=== PATIENT | male | born 1950 | race Caucasian/White ===

== ENCOUNTER 2024-11-12 18:58 | Inpatient (IN) | payer MEDICARE, MEDICAID ==
[~2024-11-12] VITALS: Ht 170.2 cm; Wt 99.0 kg
[2024-11-12] MEDS ORDERED: diltiazem-D5W 125mg/125ml 125 ML IV SCH (19:00)
[2024-11-12] MEDS ORDERED: APIX5TAB5 PO (19:13)
[2024-11-12 19:31] LABS: BASOPHILS # (AUTO) 0.1 X10'3 (0-0.2); BASOPHILS % (AUTO) 0.5 % (0-1); EOSINOPHILS % (AUTO) 0.3 % (0-6); HEMATOCRIT 45.3 % (42.0-52.0); HEMOGLOBIN 15.1 g/dl (14.0-17.9); LYMPHOCYTES # (AUTO) 2.4 X10'3 (1.1-4.8); LYMPHOCYTES % (AUTO) 18.4 % (21-51); MEAN CORPUSCULAR HEMOGLOBIN 29.2 PG (27.0-31.0); MEAN CORPUSCULAR HGB CONC 33.4 g/dL (33.0-36.5); MEAN CORPUSCULAR VOLUME 87.4 FL (78-98); MEAN PLATELET VOLUME 6.9 FL (7.4-10.4); MONOCYTES # (AUTO) 0.8 X10'3 (0-0.9); NEUTROPHILS # (AUTO) 9.7 X10'3 (1.8-7.7); NEUTROPHILS % (AUTO) 74.8 % (42-75); PLATELET COUNT 335 X10'3 (140-440); RED BLOOD COUNT 5.18 X10'6 (4.70-6.10); RED CELL DISTRIBUTION WIDTH 14.4 % (11.5-14.5)
--- NOTE | 2024-11-12 19:35 | Physician Documentation ---
History of Present Illness ~ Chief Complaint: Irregular Heartbeat Stated Complaint: HIGH HEART RATE Time Seen by MD: 19:13 HPI This is a very pleasant 74-year-old gentleman with a recent diagnosis of AFib with a RVR, started on Eliquis by his PCP yesterday, comes in as a transfer from [facility] for symptomatic slow response AFib. I reviewed records from the outside facility. Metabolic panel is unremarkable with BUN of 16.5, creatinine 0.95, normal electrolytes, normal calcium, magnesium of 1.9. Liver function is normal. BNP is mildly elevated 236. Troponin is negative at 0.04. CBC normal with a WBC of 9.8, hemoglobin 15, platelets of 308. 79% neutrophils. EKG from the outside facility reviewed as well. They shows atrial flutter, rate of 95, variable conduction, narrow QRS, no QT prolongation, normal axis, no STEMI. It appears that the patient had gone to the outside facility for worsening chest pain, shortness a breath, sensation of palpitations. She was lightheaded on an experienced near-syncope. He is currently symptom free. He specifically denies any chest pain, difficulty breathing, sensation of palpitation for lightheadedness, diaphoresis. He was noted to be in AFib with a RVR there. Non the concerned with the outside facility was that despite of AFib with a RVR the perfusing rate was bradycardic and they felt with the patient's pt need of drive pacemaker placement. Medication Reconciliation Allergies: Coded Allergies: NSAIDS (Non-Steroidal Anti-Inflamma (Verified Adverse Reaction, Unknown, 11/12/24) Scheduled Apixaban (Eliquis), 1 TAB PO BID, (Reported) Review of Systems ROS 10 point review of systems was performed and unless noted above in HPI is negative for acute process/complaint. Physical Exam Vital Signs: Temperature: 97.6, Source: Temporal, Heart Rate: 69, Respiratory Rate: 12, BP: 142/82, Pulse Oximetry: 98, Weight: 103.000 Physical Exam GENERAL: Awake, alert, oriented, GCS 15, no apparent distress, non-toxic appearing, answers questions, follows commands appropriately. Examined in bed 2. HEENT: Atraumatic, normocephalic, pupils equal, extraocular muscles intact, sclerae anicteric, mucus membranes moist, oropharynx is clear, no stridor. NECK: supple, full active range of motion, trachea midline, no thyromegaly, no lymphadenopathy, no JVD. CARDIOVASCULAR: regular rate/rhythm, no murmurs/gallops/rubs, Pulses are 2+ in all extremities and symmetric. Capillary refill less than 2 seconds. PULMONARY: Nonlabored, good air movement ,no respiratory distress, speaking in full sentences, clear to auscultation bilaterally, no wheezing, no ronchi, no rales, no accessory muscle use. GASTROINTESTINAL: Soft, non-tender, non-distended, normal active bowel sounds, no organomegaly, no pulsatile masses, no CVA tenderness. NEUROLOGIC: Lucid with normal mental status. Normal facial symmetry. Moves all extremities symmetrically and with purpose. No truncal ataxia. Speech is fluid without evidence of dysarthria or aphasia, no focal deficits appreciated. MUSCULOSKELETAL: There is full range of motion of all extremities. There is no joint pain or joint swelling or joint erythema. There is no muscle pain or tenderness or swelling. EXTREMITIES: warm, well-perfused, no cyanosis, no clubbing, no edema, no acute deformities. Skin: warm, dry, no rashes or lesions, no jaundice, no petechiae orpurpura. No ecchymosis. PSYCHIATRIC: Normal affect, normal insight, normal concentration. Focused exam: [] Progress Results/Orders Results/Orders Orders - RYNE LUX DO Diltiazem-Ns 100mg/100ml (Cardizem-Ns 10 (11/12/24 19:10) Chest,Single View (11/12/24 19:14) Monitor (11/12/24 19:14) Saline Lock (11/12/24 19:14) Oxygen (11/12/24 19:14) Cbc/Diff (11/12/24 19:14) PBNP (11/12/24 19:14) Electrocardiogram (11/12/24 19:14) CMP (11/12/24 19:14) Hs Troponin I W Calculations (11/12/24 19:14) Hs Troponin I W Calculations (11/12/24 21:14) Hs Troponin I W Calculations (11/12/24 22:14) Vital Signs 11/12/24 11/12/24 19:04 19:27 Temp 97.6 Pulse 69 Resp 12 B/P (MAP) 142/82 Pulse Ox 96 98 O2 Delivery Room Air* O2 Flow Rate 0 FiO2 21 Laboratory Tests Test 11/12/24 19:22 Medical Decision Making Findings Facility Status: ED Holds, [facility] process The plan was discussed with the patient, who demonstrates clear understanding of the plan and is in agreement with the plan unless otherwise noted in the chart. All questions have been answered, all concerns were addressed unless otherwise documented. I was available throughout their ED stay for frequent reassessment and questions. Differential Diagnoses (considered and possible or likely): [Atrial fibrillation with a rapid ventricular response, atrial fibrillation with slow ventricular response, atrial flutter, less likely malignant arrhythmia or ventricular origin, less likely ACS, less likely] ??Differential Diagnoses (considered and unlikely, not requiring evaluation currently): [CHF exacerbation. Pulmonary embolism has been considerably the patient is low risk.] MDM Data Please see [facility] for the following: Independent Historians and external Records Review. 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 All vitals signs/haemodynamics, ordered tests were independently reviewed and interpreted by myself. Nursing triage complaint and vitals reviewed, additional nursing notes were reviewed as available and I agree unless otherwise noted or documented in contradiction in the chart Vital Signs: Independently reviewed Labs: Independently interpreted Imaging: Independently interpreted Old Medical Records: Independently reviewed, see [facility] for relevant summary and information Pulse Oximetry: [96%] interpreted as [normal on room air] by me [Bit Sharpener: [Regular Rate, Regular rhythm, no ectopy, atrial flutter with 4-1 conduction. reviewed and interpreted by me] Additionally notably showing: [Hemodynamically stable.] Tests considered but not ordered include: [CT angiography has been considerably does not appear to be necessary at this time, the gentleman is already anticoagulated.] Social Determinants of Health Impact: Patient was evaluated in [facility] [place] access to healthcare due to below par ratio of patient to medical providers. [] Comorbid Conditions Impacting Present Evaluation and Care/Treatment: [Recent diagnosis of atrial fibrillation] Management Discussions with other Healthcare Providers: [Hospitalist regarding admission] Treatment and Disposition Medication Management (Given or considered): []. See EMR for details Consideration for Hospitalization/Escalation/Deescalation of Care: Admission for observation has been considered, and appears to be necessary for further manage ment of his atrial flutter/RVR. ?ED Course:?[He is currently controlled on the diltiazem drip. No clinical deterioration.] ?Shared decision making:?[] Code status:?FULL Please see the full Electronic Medical Record for full details of nursing documentation, medications list, other records of complete past medical history and conditions, vital signs, laboratory studies, and any radiologic study interpretations by radiologists. Portions of this note were completed using [employer] dictation software and as a result there may exist minor errors in spelling. I have reviewed elements of past family and social history and agree as included in note. Departure Disposition: ADMITTED INPATIENT Impression: Primary Impression: Atrial fibrillation and flutter Additional Impressions: Atrial fibrillation with rapid ventricular response Near syncope Condition: Improved Referrals: NO PRIMARY CARE PROVIDER (PCP) Critical Care Note Critical Care Note CRITICAL CARE TIME: [35 ] minutes Treatments/Evaluations: Close monitoring and treatment of unstable vital signs, cardiorespiratory, and neurologic status, while maintaining tight balance of fluid, respiratory, and cardiac interventions. This time includes discussing the case with the patient and the patient�s family. This time does not include all procedures stated elsewhere in this record. This time also includes reviewing old records, labs and radiological studies. This time includes examining and re- examining the patient. Additionally, this time also includes arranging care with admitting and consulting physicians. Signature Scribe Signature: No scribe Attestation: This note accurately reflects clinical decisions, work performed by myself, DO JOSE J Rowley NICHOLAS M DO November 12, 2024 19:35
[2024-11-12 19:47] LABS: ALANINE AMINOTRANSFERASE 19 U/L (12-78); ALBUMIN 3.8 G/DL (3.4-5.0); ALBUMIN/GLOBULIN RATIO 1.2 (1.1-1.5); ALKALINE PHOSPHATASE 57 IU/L (46-116); ANION GAP 12 (8-16); ASPARTATE AMINO TRANSFERASE 16 U/L (10-37); BILIRUBIN,TOTAL 0.4 MG/DL (0.1-1.0); BLOOD UREA NITROGEN 17 MG/DL (7-18); BUN/CREATININE RATIO 17.5 (10.0-20.0); CHLORIDE 107 MMOL/L (99-107); CREATININE 0.97 MG/DL (0.60-1.10); GLUCOSE 136 MG/DL (70-104); POTASSIUM 4.1 MMOL/L (3.5-5.1); SODIUM 143 MMOL/L (135-145); TOTAL PROTEIN 7.1 G/DL (6.4-8.2); eCRCL 67 ML/MIN; eGFR 76 ML/MIN
[2024-11-12 19:54] LABS: PRO BRAIN NATRIURETIC PEPTIDE 1163 PG/ML (0-125)
--- NOTE | 2024-11-12 20:28 | RADIOLOGY REPORT ---
Clinical History CP Comparison None Without Contrast JERE WINCHESTER, [id number] Technique: Single view portable upright chest x-ray Findings: The lungs are unremarkable. No pleural abnormality. The cardiomediastinal silhouette is unremarkable for an AP view. No acute osseous abnormality. The imaged part of the upper abdomen is unremarkable. Impression: No evidence of acute cardiopulmonary disease This report was electronically signed by Carlos Caballero MD on 11/12/2024 8:25:23 PM.
[2024-11-12] MEDS ORDERED: magnesium Cl slow-release 64mg tablet PO PRN (20:45)
[2024-11-12] MEDS ORDERED: potassium Cl 40MEQ/1/2NS 520ml 520 ML IV PRN (20:45)
[2024-11-12] MEDS ORDERED: magnesium sulf-water 4G/100mL 100 ML IV PRN (20:45)
[2024-11-12] MEDS ORDERED: potassium Cl 20 mEq SR tablet PO PRN ×2 (20:45)
[2024-11-12] MEDS ORDERED: acetaminophen 325mg tablet PO PRN ×2 (20:45)
[2024-11-12] MEDS ORDERED: mag hydrox/Alum hydrox/simeth 30ml oral suspension PO PRN (20:45)
[2024-11-12] MEDS ORDERED: magnesium sulf-water 2g/50mL 50 ML IV PRN (20:45)
[2024-11-12 21:09] LABS: INR 1.1 INR; PROTHROMBIN TIME 11.2 SECONDS (9.0-12.0)
[2024-11-12 21:15] LABS: HEMOGLOBIN A1C 5.6 % (4.5-6.2)
[2024-11-12] MEDS: magnesium sulf-water 2g/50mL 50 ML IV ONE (21:16)
[2024-11-12] MEDS: PERFLUTREN PROTEIN-A MICROSPHR (Optison) 0.22 MG/ML 3ML VIAL IV ONE (21:16)
[2024-11-12] MEDS: diltiazem-NS 100mg/100ml 100 ML IV SCH (21:17)
[2024-11-12 21:20] LABS: THYROID STIMULATING HORMONE 3.29 ulU/ml (0.34-4.50)
[2024-11-12] MEDS ORDERED: LATA2.5D14 EACHEYE (22:51)
[2024-11-12] MEDS ORDERED: BACL10TA2 PO (22:51)
[2024-11-12] MEDS ORDERED: LISI10TA27 PO (22:51)
[2024-11-12] MEDS ORDERED: FLUT16SP26 (22:51)
[2024-11-12] MEDS ORDERED: NALO25TA4 PO (22:51)
[2024-11-12] MEDS ORDERED: CARV6.253 PO (22:51)
[2024-11-12] MEDS ORDERED: METO-384 PO (22:51)
[2024-11-12] MEDS ORDERED: CHOL100017 PO (22:51)
[2024-11-12] MEDS ORDERED: GABA-535 PO (22:51)
[2024-11-12] MEDS ORDERED: HYDR-3972 PO (22:51)
[2024-11-12] MEDS ORDERED: ATOR-2 PO (22:51)
[2024-11-12] MEDS ORDERED: CETI10TA14 PO (22:51)
--- NOTE | 2024-11-12 23:33 | RADIOLOGY REPORT ---
CT CT HEAD INDICATION: syncope COMPARISON: None TECHNIQUE: CT of the head without intravenous contrast. RADIATION DOSE: CTDIvol: mGy, DLP: mGy*cm FINDINGS: There is no evidence of intracranial hemorrhage, infarct, extra-axial collection, mass effect, midli ne shift, herniation or hydrocephalus. Moderate ventricular and sulcal enlargement related to advance d cerebral volume loss. Visualized paranasal sinuses and mastoid air cells are clear. Soft tissues an d osseous structures are unremarkable. IMPRESSION: No acute intracranial abnormality identified.
[2024-11-13] VITALS (11 sets, daily range): BP systolic 114–177; BP diastolic 72–109; PULSE 67–125; RESP 15–18; TEMP 98.2–99.1; O2SAT 94–98
[2024-11-13] MEDS ORDERED: gabapentin 400mg capsule PO ONE (00:55)
[2024-11-13] MEDS: gabapentin 300mg capsule PO ONE (01:05)
[2024-11-13 03:40] LABS: ALANINE AMINOTRANSFERASE 14 U/L (12-78); ALBUMIN 3.6 G/DL (3.4-5.0); ALBUMIN/GLOBULIN RATIO 1.2 (1.1-1.5); ALKALINE PHOSPHATASE 51 IU/L (46-116); ANION GAP 11 (8-16); ASPARTATE AMINO TRANSFERASE 16 U/L (10-37); BILIRUBIN,TOTAL 0.6 MG/DL (0.1-1.0); BLOOD UREA NITROGEN 15 MG/DL (7-18); BUN/CREATININE RATIO 15.2 (10.0-20.0); CALCIUM 8.7 MG/DL (8.5-10.1); CHLORIDE 107 MMOL/L (99-107); CHOL/HDL RATIO 5.4 (0.00-4.99); CHOLESTEROL 174 MG/DL (0-200); CREATININE 0.99 MG/DL (0.60-1.10); GLUCOSE 96 MG/DL (70-104); HDL CHOLESTEROL 32 MG/DL (35-60); LDL CHOLESTEROL 124 MG/DL (50-100); MAGNESIUM 2.2 MG/DL (1.5-2.4); POTASSIUM 4.5 MMOL/L (3.5-5.1); SODIUM 143 MMOL/L (135-145); TOTAL CARBON DIOXIDE 25.1 MMOL/L (24-32); TOTAL PROTEIN 6.6 G/DL (6.4-8.2); TRIGLYCERIDES 125 MG/DL (20-135); eCRCL 65 ML/MIN; eGFR 74 ML/MIN
[2024-11-13 04:21] LABS: BASOPHILS # (AUTO) 0.1 X10'3 (0-0.2); BASOPHILS % (AUTO) 0.8 % (0-1); EOSINOPHILS # (AUTO) 0.1 X10'3 (0-0.9); EOSINOPHILS % (AUTO) 0.7 % (0-6); HEMATOCRIT 44.8 % (42.0-52.0); HEMOGLOBIN 14.2 g/dl (14.0-17.9); LYMPHOCYTES # (AUTO) 2.6 X10'3 (1.1-4.8); LYMPHOCYTES % (AUTO) 23.2 % (21-51); MEAN CORPUSCULAR HEMOGLOBIN 28.4 PG (27.0-31.0); MEAN CORPUSCULAR HGB CONC 31.8 g/dL (33.0-36.5); MEAN CORPUSCULAR VOLUME 89.4 FL (78-98); MEAN PLATELET VOLUME 7.3 FL (7.4-10.4); MONOCYTES % (AUTO) 8.8 % (2-12); NEUTROPHILS # (AUTO) 7.5 X10'3 (1.8-7.7); NEUTROPHILS % (AUTO) 66.5 % (42-75); PLATELET COUNT 332 X10'3 (140-440); RED BLOOD COUNT 5.01 X10'6 (4.70-6.10); RED CELL DISTRIBUTION WIDTH 14.1 % (11.5-14.5); WHITE BLOOD COUNT 11.4 X10'3 (4.5-11.0)
[2024-11-13 06:06] LABS: BILIRUBIN,URINE NEGATIVE (Neg); CLARITY,URINE CLEAR (Clear); COLOR,URINE YELLOW (Yellow); GLUCOSE, URINE NEGATIVE (Neg); KETONES,URINE NEGATIVE (Neg); LEUKOCYTE ESTERASE ,URINE NEGATIVE (Neg); NITRITES, URINE NEGATIVE (Neg); OCCULT BLOOD,URINE NEGATIVE (Neg); PROTEIN,URINE NEGATIVE (Neg); UROBILINOGEN,URINE 0.2 E.U/dL (0.2-1.0)
[2024-11-13 06:09] LABS: URINE AMPHETAMINE SCREEN NEGATIVE (Neg); URINE BARBITUATE SCREEN NEGATIVE (Neg); URINE BENZODIAZEPINES SCREEN NEGATIVE (Neg); URINE CANNABINOID SCREEN POSITIVE (Neg); URINE COCAINE SCREEN NEGATIVE (Neg); URINE METHADONE SCREEN NEGATIVE (Neg); URINE OPIATE SCREEN POSITIVE (Neg); URINE PHENCYCLIDINE SCREEN NEGATIVE (Neg)
[2024-11-13 06:21] LABS: UA COLLECTION TYPE URINAL
--- NOTE | 2024-11-13 06:49 | HISTORY AND PHYSICAL-Residence ---
History & Physical Providers to CC Resident Creating Document: ANNE POLLARD, RES ~ History of Present Illness Reason for Admit\\Complaint: Syncope History of Present Illness The patient is a 74-year-old male with past medical history of AL, hypertension, transferred from [facility] for need of pacemaker placement. The patient was getting dizzy and had two episodes of syncope in the last three weeks and near-syncope today. His primary care physician advised him to go to ER if he gets a syncope again. He went to [facility] ER three days ago and was diagnosed with AFib with RVR. He was started on metoprolol and Eliquis there. He went back to the hospital yesterday for evaluation and he got an EKG and was apparently normal. This morning, the patient had a near-syncope and got dizzy. And he went to [facility] again. He was found to be in A flutter with controlled ventricular rate. Denies chest pain, palpitations, shortness of breath, cough, fever, nausea, vomiting, constipation, abdominal pain, burning micturition, hematemesis, melena, weight loss. He takes opioid for pain and also takes stool softener for constipation. He has about two stools every day. The patient was not evaluated for syncope at the other hospital. Allergies: Coded Allergies: NSAIDS (Non-Steroidal Anti-Inflamma (Verified Adverse Reaction, Unknown, 11/12/24) Home Medications Home Medications Active Reported Vitamin D3 (Cholecalciferol (Vitamin D3)) 25 Mcg (1000 Unit) Tablet 1 Tab PO DAILY Cetirizine HCl 10 Mg Tablet 1 Tab PO HS Fluticasone Propionate 50 Mcg/Actuation [place].susp Latanoprost 0.005 % Drops EACHEYE Movantik (Naloxegol Oxalate) 25 Mg Tablet 1 Tab PO DAILY Atorvastatin Calcium 80 Mg Tablet 1 Tab PO DAILY Carvedilol 6.25 Mg Tablet 1 Tab PO BID Baclofen 10 Mg Tablet 1 Tab PO DAILY Lisinopril 10 Mg Tablet 1 Tab PO DAILY Metoprolol Succinate 50 Mg Tab.sr.24h 1 Tab PO DAILY Hydrocodon-Acetaminophn 10-325 tablet (Acetaminophen/Hydrocodone Bitart) 10mg- 325mg Tablet 1 Tab PO QID Gabapentin 400 Mg Capsule 1 Cap PO DAILY Eliquis (Apixaban) 5 Mg (74 Tabs) Tab.ds.pk 1 Tab PO BID 30 Days Past Medical History Past Medical History Hypertension CAD s/p two stents six years ago Past Surgical History Surgical History Comment Back surgery Family history: Mother-breast cancer Father-colon cancer at age 65, triple vessel bypass surgery at age 55 Past Social History Social History Comment The patient lives in his house with roommates. Ambulates without assistance. Does not smoke, drink alcohol or does drugs. Primary care physician is Dr. 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 ROS ROS Reviewed in full. Negative except for pertinent positives in HPI. Exam Vitals: Vital Signs Date Time Temp Pulse Resp B/P (MAP) Pulse Ox O2 Delivery O2 Flow Rate FiO2 11/13/24 06:00 68 15 132/67 (88) 96 11/12/24 19:27 Room Air* 0 21 11/12/24 19:04 97.6 General: Elderly male, alert and oriented x4, not in acute distress Head: Normocephalic with an atraumatic Eyes: Pupils- 3mm, reacting to light, conjunctiva- anicteric Nose and throat: No polyps, septum- normal, no mucosal ulcers Neck: Supple, no lymphadenopathy, no carotid bruit Respiratory: No use of accessory muscles of respiration, Bilateral normal vesiscular breath sounds heard. No wheeze, rhochi or creps Cardiac: S1-S2 heard, rhythm regular, no gallop/murmur Abdomen: non distended, no tenderness, no organomegaly, bowel sounds - heard Extremities: no clubbing, no pedal edema, no deformities, peripheral pulses - 2+ Skin: warm and dry, no rash, no purpura Neuro: No focal deficit, gross cranial nerve exam - normal Diagnostic Data Last Recorded Lab Results: 11/13/24 0240 11/13/24 0240 Diagnostic Data: Laboratory Tests Test 11/12/24 19:22 Prothrombin Time 11.2 SECONDS (9.0-12.0) INR International Normalized Ratio 1.1 INR Coagulation Comments Advance Care Planning Advanced Care plannin - 30 Minutes Additional Plan The patient is a 74-year-old male with a past medical history of hypertension, CAD, was transferred from [facility] for requirement of pacemaker placement. Plan: Atrial flutter with controlled ventricular rate Atrial fibrillation Syncope Patient transferred for possible pacemaker placement for ?"bradycardic perfusing great despite AFib with RVR." EKG at the outside hospital rate a flutter with a rate of 95, variable conduction, narrow QRS. Patient was started on diltiazem drip running at 5 mg/hour in the ER. Switched IV to p.o. 30 mg q.6 H. He has both metoprolol and carvedilol in his home medications. Consider cardiology consultation. Continued his home Eliquis 5 mg b.i.d. Continue telemetry monitoring. Follow up with carotid ultrasound and echocardiogram. Type 2 AL Elevated and stable troponins. Likely demand ischemia. Hypertension Continue hydrochlorothiazide and lisinopril. Hyperlipidemia Continue home atorvastatin 80 mg daily. Follow up with the LDL. Code Status: Full code DVT Prophylaxis: Eliquis Analgesia/Sedation: Tylenol Lines/Tubes: PIV Nutrition: Heart healthy diet PT: Ordered Disposition: We will admit the patient into medical hook. Cardiology consultation for possible pacemaker placement. Anne Pollard MD Internal Medicine Resident PGY-1 Date of Service: November 13, 2024 Billing Provider: STAN ROUSE MD Common Visit Codes: 28747-[id number] INP/OBS CARE (HIGH) Assessment/Plan Assessment Evaluated th e patient with tthe help of residents. Discussed the care with them Reviewed the notes by the resident and agree with the assessments and plans. I also reviewed records and suggest continue the present regimen. ANNE POLLARD, RES November 13, 2024 06:49 STAN ROUSE MD November 13, 2024 11:27
--- NOTE | 2024-11-13 07:12 | ELECTROCARDIOGRAPH REPORT ---
[facility] Test Date: 2024-11-12 Test Time: 19:05:19 Pat Name: JERE WINCHESTER Department: EMERGENCY ROOM Patient ID: [id number] Room: ED 2 1 Gender: M General Utility Machine Operator: SREEDHAR : 1950 Requested By: RYNE LUX Order Number: [id number] Reading MD: Dr. Harjinder Dean Measurements Intervals [place] Rate: 69 P: 0 NC: 0 QRS: 26 QRSD: 118 T: 50 QT: 496 QTc: 532 Interpretive Statements Atrial flutter with predominant 4:1 AV block Nonspecific intraventricular conduction delay Inferior infarct, recent Probable anteroseptal infarct, old Baseline wander in lead(s) V6 Electronically Signed On 11-13-2024 11:25:[address] Harjinder Dean Please click the below link to view image of tracing.
[2024-11-13] MEDS ORDERED: carvedilol 6.25mg tablet PO SCH (08:00)
[2024-11-13] MEDS: apixaban 5mg tablet PO SCH (08:00)
[2024-11-13] MEDS: K and/or MAG REPLACEMENT MC SCH (08:00)
[2024-11-13] MEDS ORDERED: metoprolol succinate 25mg (24-HOUR) SR. Tablet PO SCH (08:00)
[2024-11-13] MEDS: diltiazem 30mg tablet PO SCH (08:00)
[2024-11-13] MEDS ORDERED: nitroGLYCERIN 0.4mg SUBLingual tab SL PRN (08:30)
[2024-11-13] MEDS ORDERED: aminophylline 500mg/20ml vial IV PRN (08:30)
[2024-11-13] MEDS: gabapentin 400mg capsule PO SCH (09:49)
[2024-11-13] MEDS: HYDROcodone/acetaminophen 10/325mg tab PO SCH (10:25)
[2024-11-13] MEDS ORDERED: HYDROcodone/acetaminophen 10/325mg tab PO SCH (13:00)
[2024-11-13] MEDS: regadenoson 0.4mg/5ml syringe IV PRN (13:24)
[2024-11-13] MEDS: metoprolol tartrate 1mg/ml inj IV PRN (13:33)
[2024-11-13] MEDS: ondansetron/PF 4mg/2ml inj IV PRN (13:58)
--- NOTE | 2024-11-13 14:26 | VASCULAR REPORT ---
Carotid Duplex Date: 11/13/2024 11:10 AM Clinical History: Syncope Comparison: None Technique: Duplex Doppler evaluation of the extracranial carotid and vertebral arteries including col or Doppler and spectral/pulsed waveform analysis was performed. Findings: RIGHT SIDE: The peak systolic velocities are 55 cm/s in the distal CCA and 52 cm/s in the proximal ICA.The ICA/C CA ratio is 1. The external carotid artery is patent with peak systolic velocity of 77 cm/s proximally. There is appropriate antegrade flow in the right vertebral artery. LEFT SIDE: The peak systolic velocities are 66 cm/s in the distal CCA and 59cm/s in the proximal ICA. The ICA/ CCA ratio is 0.9. The external carotid artery is patent with peak systolic velocity of 89 cm/s proximally. There is appropriate antegrade flow in the left vertebral artery. IMPRESSION: No hemodynamically significant stenosis noted in the right carotid system. No hemodynamically significant stenosis noted in the left carotid system. Reference: Radiology 2003; 229:[id number]
--- NOTE | 2024-11-13 16:07 | RADIOLOGY REPORT ---
EXAM: NM NM KAILYN SCAN History: sob/cp Comparison Study: None TECHNIQUE: Resting myocardial perfusion imaging was performed approximately 30 minutes following the injection of 7.95 mCi of Tc-99m sestamibi. Peak pharmacologic stress, the patient was injected with 3 3.45 mCi of Tc-99m sestamibi. Gated post stress images were acquired in the supine and prone position s approximately 30 minutes after stress and left ventricular ejection fraction (LVEF) was calculated. Findings: The overall quality of the study is adequate. The left ventricular cavity is noted to be enlarged. There is no evidence of abnormal lung activity. Additionally, the right ventricle appears normal. Myocardial perfusion images demonstrate a large size, moderate intensity perfusion defects in the dis ericka anterior and inferior umana which is fixed. Gated imaging reveals globally hypokinetic wall motion with a calculated decreased LVEF of 37 % with end-diastolic volume of 155 mL at stress. Impression: 1. Large size, moderate intensity perfusion defects in the distal anterior and inferior umana which i s fixed favored to reflect infarct. 2. No evidence of ischemia. 3. Overall gated left ventricular systolic function was global hypokinesis with calculated decreased LVEF of 37 % at stress. 4. Enlarged left ventricle.
[2024-11-13] MEDS: atorvastatin 20mg tablet PO SCH (16:17)
[2024-11-13] MEDS: baclofen 10mg tablet PO SCH (16:21)
[2024-11-13] MEDS: lisinopril 10 MG tablet PO SCH (16:21)
--- NOTE | 2024-11-13 19:54 | PROGRESS NOTE- Residence ---
Progress Note - Resident Providers to CC Resident Creating Document: JACQUELYN REYES RES ~ Antibiotic Timeout Antibiotic Ordered?: No Subjective Patient was seen and examined at bedside. He was complaining of lower back for which he has been using Ramona and baclofen at home. Otherwise, he was doing well. Objective Vital Signs Date Time Temp Pulse Resp B/P (MAP) Pulse Ox O2 Delivery O2 Flow Rate FiO2 11/13/24 16:41 15 97 Room Air 11/13/24 16:21 71 11/13/24 15:52 98.2 177/99 (125) 11/13/24 14:33 0.0 11/12/24 19:27 21 Elderly male, alert and oriented x4, not in acute distress Nose and throat: No polyps, septum- normal, no mucosal ulcers Neck: Supple, no lymphadenopathy, no carotid bruit Respiratory: No use of accessory muscles of respiration, Bilateral normal vesiscular breath sounds heard. No wheeze, rhochi or creps Cardiac: S1-S2 heard, rhythm regular, no gallop/murmur Abdomen: non distended, no tenderness, no organomegaly, bowel sounds - heard Extremities: no clubbing, no pedal edema, no deformities, peripheral pulses - 2+ Skin: warm and dry, no rash, no purpura Neuro: No focal deficit, gross cranial nerve exam - normal Result Diagram: 11/13/24 0240 11/13/24 0240 Coagulation Studies Laboratory Tests Test 11/12/24 19:22 Prothrombin Time 11.2 SECONDS (9.0-12.0) INR International Normalized Ratio 1.1 INR Coagulation Comments Advance Care Planning Advanced Care plannin - 30 Minutes Assessment Assessment The patient is a 74-year-old male with a past medical history of hypertension, CAD, was transferred from [facility] for requirement of pacemaker placement. Plan Plan Atrial flutter with controlled ventricular rate Atrial fibrillation CAD, status post stent x2 Syncope Patient transferred for possible pacemaker placement for ?"bradycardic perfusing great despite AFib with RVR." EKG at the outside hospital rate a flutter with a rate of 95, variable conduction, narrow QRS. Patient was started on diltiazem drip running at 5 mg/hour in the ER. Switched IV to p.o. 30 mg q.6 H. Continued Eliquis 5 mg b.i.d. Continue telemetry monitoring. Patient will benefit from Holter monitor in outpatient setting CHFrEF: EF 45% No clinical evidence of exacerbation Continue metoprolol, aspirin, and atorvastatin Modest leukocytosis: Leukocytosis noted, however, absence of fever, normal normal inflammatory markers, and lack of clinical signs of infection suggest on noninfectious etiology such as stress response. Elevated troponins: Likely type 2 FL/demand ischemia Trended down Hyperlipidemia: LDL 124. Goal < 70 Continue atorvastatin Hypertension Continue hydrochlorothiazide and lisinopril. Chronic back pain: S/P two back surgeries Continue home medications i.e. Ramona and baclofen November 13, 2024: Undergoing syncope workup Echo shows LVEF 45% CT head; No acute intracranial abnormality Lexiscan: 1. Large size, moderate intensity perfusion defects in the distal anterior and inferior umana which is fixed favored to reflect infarct. 2. No evidence of ischemia. 3. Overall gated left ventricular systolic function was global hypokinesis with calculated decreased LVEF of 37 % at stress. 4. Enlarged left ventricle. Carotid artery ultrasound: No hemodynamically significant stenosis noted in the right carotid system. No hemodynamically significant stenosis noted in the left carotid system. Code Status: Full code DVT Prophylaxis: Eliquis Analgesia/Sedation: Tylenol Lines/Tubes: PIV Nutrition: Heart healthy diet PT: Ordered Jacquelyn Reyes Internal Medicine Resident Date of Service: November 13, 2024 Billing Provider: POLO RENE MD, SHAMS, RES November 13, 2024 19:53
--- NOTE | 2024-11-13 20:08 | CARDIOLOGY REPORT ---
APPROVED REPORT EXAM: Comprehensive 2D, Doppler, and color-flow Echocardiogram. Patient Location: [facility] Blood Pressure: 153/92 mmHg Heart Rate: 104-118 bpm Rhythm: Irregular Indications Hypertension Atrial Flutter CAD Stents x 2 in [address] Victor Hugo MD in [facility] No previous echo 2D Dimensions LA Diam5.1 cm IVSd 1.1 (0.7-1.1cm) LVDd 5.3 cm PWd 1.1 (0.7-1.1cm) IVSs 1.3 (0.8-1.2cm) LVDs 4.2 (2.5-4.0cm) Aortic Root(2D) 3.3 cm PWs 1.4 (0.8-1.2cm) LVOT Diameter 2.25 (1.8-2.4cm) LVEF(%) 43.5 (>50%) Ao Asc Diam.3.85 cmIVC 16.31 mm FS (%) 21.6 % SV 58.8 ml CO 6.5 L/min M-Mode Dimensions MV EPSS 2.5 (<0.5cm) Aortic Valve AoV Peak Jossue. 190.7 cm/s AoV VTI 36.2 cm AO Peak GR. 14.5 mmHg AO Mean GR. 8 mmHg LVOT VTI 29.09 cm LVOT Peak Jossue. 145.9 cm/s JASPER(VTI)/BSA 3.21 cm2/m2 JASPER (VTI) 3.21 cm2 Mitral Valve MV E Velocity 92.2 cm/s MV Peak Gr. 6 mmHg MV DECEL TIME 180 ms MV A Velocity 68.9 cm/s MV PHT 56 ms E/A Ratio 1.3 MVA (PHT) 3.93 cm2 MV VMwe638.7 cm/s Tricuspid Valve RAP ESTIMATE 10 mmHg LEFT VENTRICLE LV is normal in size and thickness. Overall systolic function is mildly reduced. Distal anteroseptum, apical septum and inferior apex appears hypokinetic. LVEF is 45%. RIGHT VENTRICLE RV is normal size and function. ATRIA Left atrium is moderately dilated. AORTIC VALVE Trileaflet AV appears sclerotic without stenosis. Mild insufficiency. MITRAL VALVE MV is thickened with mild annular calcification and no stenosis. Mild mitral regurgitation. TRICUSPID VALVE The tricuspid valve is normal in structure. Trace tricuspid regurgitation. PULMONIC VALVE The pulmonary valve is normal in structure. Trace pulmonic regurgitation. GREAT VESSELS The aortic root is normal in size. Ascending aorta measured at 3.8 cm. The IVC is normal in size and collapses >50% with inspiration. PERICARDIUM There is no pericardial effusion. Other Information Study Quality: Adequate
[2024-11-14] VITALS (7 sets, daily range): BP systolic 101–150; BP diastolic 69–103; PULSE 70–118; RESP 12–20; TEMP 97.4–97.8; O2SAT 95–98
[2024-11-14] MEDS: HYDROcodone/acetaminophen 10/325mg tab PO PRN (04:44)
[2024-11-14 06:24] LABS: BASOPHILS # (AUTO) 0.1 X10'3 (0-0.2); BASOPHILS % (AUTO) 0.7 % (0-1); EOSINOPHILS # (AUTO) 0.1 X10'3 (0-0.9); EOSINOPHILS % (AUTO) 1.2 % (0-6); HEMATOCRIT 46.5 % (42.0-52.0); HEMOGLOBIN 15.3 g/dl (14.0-17.9); LYMPHOCYTES # (AUTO) 2.1 X10'3 (1.1-4.8); LYMPHOCYTES % (AUTO) 21.9 % (21-51); MEAN CORPUSCULAR HEMOGLOBIN 29.4 PG (27.0-31.0); MEAN CORPUSCULAR HGB CONC 32.9 g/dL (33.0-36.5); MEAN CORPUSCULAR VOLUME 89.2 FL (78-98); MEAN PLATELET VOLUME 7.1 FL (7.4-10.4); MONOCYTES # (AUTO) 0.9 X10'3 (0-0.9); MONOCYTES % (AUTO) 8.8 % (2-12); NEUTROPHILS # (AUTO) 6.6 X10'3 (1.8-7.7); NEUTROPHILS % (AUTO) 67.4 % (42-75); PLATELET COUNT 312 X10'3 (140-440); RED BLOOD COUNT 5.22 X10'6 (4.70-6.10); RED CELL DISTRIBUTION WIDTH 14.1 % (11.5-14.5); WHITE BLOOD COUNT 9.8 X10'3 (4.5-11.0)
[2024-11-14 07:27] LABS: ALANINE AMINOTRANSFERASE 17 U/L (12-78); ALBUMIN 3.6 G/DL (3.4-5.0); ALBUMIN/GLOBULIN RATIO 1.1 (1.1-1.5); ALKALINE PHOSPHATASE 54 IU/L (46-116); ANION GAP 10 (8-16); ASPARTATE AMINO TRANSFERASE 17 U/L (10-37); BILIRUBIN,TOTAL 1.1 MG/DL (0.1-1.0); BLOOD UREA NITROGEN 19 MG/DL (7-18); CALCIUM 8.8 MG/DL (8.5-10.1); CHLORIDE 104 MMOL/L (99-107); CREATININE 0.95 MG/DL (0.60-1.10); GLUCOSE 85 MG/DL (70-104); POTASSIUM 4.6 MMOL/L (3.5-5.1); SODIUM 141 MMOL/L (135-145); TOTAL CARBON DIOXIDE 27.5 MMOL/L (24-32); TOTAL PROTEIN 6.8 G/DL (6.4-8.2); eCRCL 66 ML/MIN; eGFR 78 ML/MIN
[2024-11-14] MEDS: aspirin 81mg, enteric-coated 1 TAB TABLET.DR PO SCH (09:07)
[2024-11-14] MEDS: magnesium hydroxide 30ml (MOM) UD suspension PO PRN (09:07)
[2024-11-14] MEDS: metoprolol succinate 25mg (24-HOUR) SR. Tablet PO SCH ×2 (09:09→11:42)
[2024-11-14] MEDS ORDERED: ASPI-1071 PO (14:16)
--- NOTE | 2024-11-14 16:20 | DISCHARGE SUMMARY-Residence ---
Discharge Summary Providers to CC Resident Creating Document: JACQUELYN GALEANA, RES ~ Discharge Summary Admission Diagnosis: Atrial flutter, Syncope Hospital Course DATE OF ADMISSION: NOV 12 2024 DATE OF DISCHARGE: NOVEMBER 14, 2024 Discharge Diagnosis\Comment: Atrial flutter with controlled ventricular rate Atrial fibrillation CAD, status post stent x2 Syncope CHFrEF: EF 45% - no exacerbation Modest leukocytosis, reactive, resolved with IV hydration Elevated troponins: Likely type 2 CO/demand ischemia Hyperlipidemia Hypertension Chronic back pain Operations\Procedures: None Consultants: None Complications: None Condition on DC: Stable New Medications: Aspirin (Ecotrin*) 81 Mg Tablet.dr 1 TAB PO DAILY for 30 Days, #30 TAB.SR Continued Medications: Apixaban (Eliquis) 5 Mg (74 Tabs) Tab.ds.pk 1 TAB PO BID for 30 Days, #74 TAB 0 Refills Atorvastatin Calcium (Atorvastatin Calcium) 80 Mg Tablet 1 TAB PO DAILY Baclofen (Baclofen) 10 Mg Tablet 1 TAB PO DAILY Cetirizine HCl (Cetirizine HCl) 10 Mg Tablet 1 TAB PO HS Cholecalciferol (Vitamin D3) (Vitamin D3) 25 Mcg (1000 Unit) Tablet 1 TAB PO DAILY Fluticasone Propionate (Fluticasone Propionate) 50 Mcg/Actuation [place].susp Gabapentin (Gabapentin) 400 Mg Capsule 1 CAP PO DAILY Hydrocodone Bit/Acetaminophen (Hydrocodon-Acetaminophn 10-325 tablet) 10mg- 325mg Tablet 1 TAB PO QID Latanoprost (Latanoprost) 0.005 % Drops EACHEYE Lisinopril (Lisinopril) 10 Mg Tablet 1 TAB PO DAILY Metoprolol Succinate (Metoprolol Succinate) 50 Mg Tab.sr.24h 1 TAB PO DAILY Naloxegol Oxalate (Movantik) 25 Mg Tablet 1 TAB PO DAILY Discontinued Medications: Carvedilol (Carvedilol) 6.25 Mg Tablet 1 TAB PO BID Discharge Summary: Patient was admitted with the following HPI: The patient is a 74-year-old male with past medical history of CO, hypertension, transferred from [facility] for need of pacemaker placement. The patient was getting dizzy and had two episodes of syncope in the last three weeks and near-syncope today. His primary care physician advised him to go to ER if he gets a syncope again. He went to [facility] ER three days ago and was diagnosed with AFib with RVR. He was started on metoprolol and Eliquis there. He went back to the hospital yesterday for evaluation and he got an EKG and was apparently normal. This morning, the patient had a near-syncope and got dizzy. And he went to [facility] again. He was found to be in A flutter with controlled ventricular rate. Denies chest pain, palpitations, shortness of breath, cough, fever, nausea, vomiting, constipation, abdominal pain, burning micturition, hematemesis, melena, weight loss. He takes opioid for pain and also takes stool softener for constipation. He has about two stools every day. The patient was not evaluated for syncope at the other hospital. Hospital course: ER, EKGs showed atrial flutter with a rate of 95, variable conduction, and narrow QRS complexes. Initially treated with diltiazem drip running at 5 milligram/hours and later switched to p.o. diltiazem 30 mg q.6h while kept under telemetry. Patient has undergone extensive syncope workup including CT scan of the head, carotid ultrasound, EKG, echocardiogram, Lexiscan, and telemetry monitoring. All tests were unremarkable, and no immediate cause of your syncope was found. Orthostatics were normal. However, echo showed left ventricular ejection fraction of 45% which indicated CHFp EF with no exacerbation. Discharge course: Patient is hemodynamically stable. No further episode of syncope or presyncope. Physical therapy team evaluated and cleared him for discharge to home. Discharge instructions: You were admitted for episodes of syncope/fainting. During your hospital stay, you underwent a thorough workup including CT scan of the head, carotid ultrasound, EKGs, echocardiogram, and telemetry monitoring. All tests were unremarkable, and no immediate cause of your syncope was found. Outpatient cardiac monitoring is recommended to evaluate your heart rhythm over time. Your primary care doctor we will assist with referral to a family therapist for a Holter monitor or event monitor. Monitor for any recurrent symptoms such as dizziness, palpitation, or fainting and seek immediate care if they occur. Avoid driving or operating heavy machinery until cleared by your doctor. Discharge physical exam: Vital Signs Date Time Temp Pulse Resp B/P (MAP) Pulse Ox O2 Delivery O2 Flow Rate FiO2 11/14/24 15:04 14 11/14/24 14:31 96 Room Air* 0 21 11/14/24 10:15 75 150/103 (119) 70 147/97 (114) 74 144/90 (108) 11/14/24 10:10 97.4 Elderly male, alert and oriented x4, not in acute distress Nose and throat: No polyps, septum- normal, no mucosal ulcers Neck: Supple, no lymphadenopathy, no carotid bruit Respiratory: No use of accessory muscles of respiration, Bilateral normal vesiscular breath sounds heard. No wheeze, rhochi or creps Cardiac: S1-S2 heard, rhythm regular, no gallop/murmur Abdomen: non distended, no tenderness, no organomegaly, bowel sounds - heard Extremities: no clubbing, no pedal edema, no deformities, peripheral pulses - 2+ Skin: warm and dry, no rash, no purpura Neuro: No focal deficit, gross cranial nerve exam - normal Imaging studies: 2D echo performed on November 13, 2024: LEFT VENTRICLE LV is normal in size and thickness. Overall systolic function is mildly reduced. Distal anteroseptum, apical septum and inferior apex appears hypokinetic. LVEF is 45%. RIGHT VENTRICLE RV is normal size and function. ATRIA Left atrium is moderately dilated. AORTIC VALVE Trileaflet AV appears sclerotic without stenosis. Mild insufficiency. MITRAL VALVE MV is thickened with mild annular calcification and no stenosis. Mild mitral re gurgitation. TRICUSPID VALVE The tricuspid valve is normal in structure. Trace tricuspid regurgitation. PULMONIC VALVE The pulmonary valve is normal in structure. Trace pulmonic regurgitation. GREAT VESSELS The aortic root is normal in size. Ascending aorta measured at 3.8 cm. The IVC is normal in size and collapses >50% with inspiration. PERICARDIUM There is no pericardial effusion. Other Information Study Quality: Adequate Carotid artery ultrasound performed on November 13, 2024: IMPRESSION: No hemodynamically significant stenosis noted in the right carotid system. No hemodynamically significant stenosis noted in the left carotid system. Lexiscan performed on November 13, 2024: Impression: 1. Large size, moderate intensity perfusion defects in the distal anterior and inferior umana which is fixed favored to reflect infarct. 2. No evidence of ischemia. 3. Overall gated left ventricular systolic function was global hypokinesis with calculated decreased LVEF of 37 % at stress. 4. Enlarged left ventricle. Head CT performed on November 12, 2024: IMPRESSION: No acute intracranial abnormality identified. *Problems/Diagnosis: (1) Atrial fibrillation and flutter Status: Acute (2) Near syncope Status: Acute Total Time Spent on D/C: Up to 30 Minutes Date of Service: November 14, 2024 Billing Provider: POLO RENE MD, SHAMS, RES November 14, 2024 15:58
[2024-11-15] MEDS ORDERED: lisinopril 10 MG tablet PO SCH (08:00)
== END 2024-11-14 16:48 | disposition home or self-care (01) | DRG 281 ==
LOC: ER 19:00 → ED HOLD 20:54 → UNDOADMIN 20:54 → ED HOLD 20:55 → PCU 3S 11-13 15:38
PROVIDERS: ADMIT Internal Medicine Critical Care Medicine; ATTEND Family Medicine
PROC: 4A02XM4 Measurement of Cardiac Total Activity, External Approach (ICD-10-PCS; principal; 2024-11-13)
PROC: 3E033HZ Introduction of Radioactive Substance into Peripheral Vein, Percutaneous Approach (ICD-10-PCS; 2024-11-13)
DX: I48.91 Unspecified atrial fibrillation (principal); I50.20 Unspecified systolic (congestive) heart failure; I21.A1 Myocardial infarction type 2; I11.0 Hypertensive heart disease with heart failure; I48.92 Unspecified atrial flutter; E78.5 Hyperlipidemia, unspecified; D72.829 Elevated white blood cell count, unspecified; G89.29 Other chronic pain; M54.9 Dorsalgia, unspecified; I25.10 Atherosclerotic heart disease of native coronary artery without angina pectoris; Z79.01 Long term (current) use of anticoagulants; Z79.899 Other long term (current) drug therapy; Z88.6 Allergy status to analgesic agent
CPT/HCPCS: 36415; 70450; 71045; 78452; 80053; 80061; 80305; 81003; 83036; 83735; 83880; 84145; 84443; 84484; 85025; 85610; 93005; 93017; 93306; 93880; 97116; 97162; 99291; A9500; G0378; J2405; J2785; J3490